=== PATIENT | female | born 1955 | race Caucasian/White ===

== ENCOUNTER → 2016-10-22 | Outpatient (CLI) | payer BC ==
[~2016-10-22] MED LIST: APRESOLINE 25MG25 MG PO; ASPIRIN E.C. 8181 MG PO; ATORVASTATIN; COZAAR 50MG50 MG/TAB PO; IBUPROFEN 200200 MG PO; LIPITOR20 MG PO; LOPRESSOR 550 MG/TAB PO; LOPRESSOR100 MG PO; LORTAB 5/500 501 TAB PO
== END ==
LOC: COL.RAD 14:51
DX: R10.12 Left upper quadrant pain (principal); R10.32 Left lower quadrant pain

== ENCOUNTER → 2016-10-25 | Outpatient (CLI) | payer BC | LOC: COL.RAD 10:30 | DX: K76.89 Other specified diseases of liver (principal); R10.32 Left lower quadrant pain | CPT/HCPCS: Q9967 ==

== ENCOUNTER → 2016-11-20 | Outpatient (CLI) | payer BC | LOC: MC.RAD 16:37 | DX: Z12.31 Encounter for screening mammogram for malignant neoplasm of breast (principal); Z80.3 Family history of malignant neoplasm of breast ==

== ENCOUNTER 2016-11-23 06:56 | Day surgery (SDC) | payer BC ==
[~2016-11-23] VITALS: Ht 172.7 cm; Wt 85.7 kg
[2016-11-23 07:10] VITALS: BP 127/91; PULSE 92; TEMP 97.8
[2016-11-23 08:35] VITALS: BP 104/41; PULSE 71; TEMP 97.8
[2016-11-23 08:50] VITALS: BP 105/59; PULSE 74
[2016-11-23 09:05] VITALS: BP 102/55; PULSE 74
== END 2016-11-23 09:20 | disposition home or self-care (01) ==
LOC: SDCO 06:56
DX: Z12.11 Encounter for screening for malignant neoplasm of colon (principal); K63.5 Polyp of colon; K57.30 Diverticulosis of large intestine without perforation or abscess without bleeding; I10 Essential (primary) hypertension
CPT/HCPCS: J2250; J3010; J7030

== ENCOUNTER → 2017-11-15 | Outpatient (CLI) | payer BC ==
[~2017-11-15] VITALS: Ht 172.8 cm; Wt 89.0 kg
[2017-11-15 06:00] VITALS: BP 138/70; PULSE 88
[2017-11-15 07:10] VITALS: BP 156/75; PULSE 75
[2017-11-15 07:18] VITALS: BP 153/57; PULSE 115
[2017-11-15 07:19] VITALS: BP 134/49; PULSE 107
[2017-11-15 07:20] VITALS: BP 131/54; PULSE 100
[2017-11-15 07:21] VITALS: BP 116/42; PULSE 98
== END ==
LOC: COL.CARD 11-13 05:45
DX: R07.9 Chest pain, unspecified (principal)
CPT/HCPCS: A9502

== ENCOUNTER → 2017-12-20 | Outpatient (CLI) | payer BC | LOC: MC.RAD 09:48 | DX: Z12.31 Encounter for screening mammogram for malignant neoplasm of breast (principal) ==

== ENCOUNTER → 2019-02-09 | Outpatient (CLI) | payer BC | LOC: MC.RAD 14:24 | DX: Z12.31 Encounter for screening mammogram for malignant neoplasm of breast (principal) ==

== ENCOUNTER 2021-05-29 19:26 | Observation (INO) | payer BC ==
[~2021-05-29] VITALS: Ht 172.7 cm; Wt 86.4 kg
[2021-05-29 20:07] LABS: HEMATOCRIT 38.4 % (37.0-47.0); HEMOGLOBIN 12.8 g/dl (12.5-16.0); MEAN CELL VOLUME 91 fl (80.0-100.0); MEAN CORPUSCULAR HEMOGLOBIN 31 pg (27.0-31.0); MEAN CORPUSCULAR HGB CONC 33 g/dl (33.0-37.0); MEAN PLATELET VOLUME 9.7 fl (7.4-10.4); PLATELET COUNT 246 K/mm3 (130-400); REDCELL DISTRIBUTION WIDTH-CV 13.3 % (11.5-14.5)
[2021-05-29 20:16] LABS: PROTHROMBIN TIME 11.6 SECONDS (9.7-12.8)
[2021-05-29 20:21] LABS: ALANINE AMINOTRANSFERASE 32 U/L (4-34); ALBUMIN 4.6 gm/dL (3.5-5.0); ALKALINE PHOSPHATASE 104 U/L (50-136); ANION GAP 10 mmol/L (7-16); AST,SGOT 32 U/L (15-37); BILIRUBIN,TOTAL 0.3 mg/dL (0.0-1.0); BLOOD UREA NITROGEN 14 mg/dL (7-17); CALCIUM 9.1 mg/dL (8.4-10.2); CARBON DIOXIDE 25 mmol/L (22-30); CHLORIDE 105 mmol/L (98-107); CREATININE, serum 1.04 (0.52-1.25); GLUCOSE 120 mg/dL (74-106); LIPASE 208 U/L (23-300); SODIUM 140 mmol/L (137-145); TOTAL PROTEIN 7.5 gm/dL (6.4-8.2)
[2021-05-29 20:23] LABS: C-REACTIVE PROTEIN < 0.5 mg/dL (0.0-0.9)
[2021-05-29 20:37] LABS: LYMPHOCYTE 49 % (20.0-51.0); NEUTROPHILS 43 % (42.0-75.2); PLATELET ESTIMATE NORMAL (NORMAL)
[2021-05-29 20:48] LABS: COLLECTION METHOD CLEAN CATCH
[2021-05-29 20:54] LABS: PH 6 (5-8); SQUAMOUS EPITHELIAL 0-2 /hpf; URINE APPEARANCE Clear; URINE BACTERIA Rare /hpf; URINE BILIRUBIN Negative (NEGATIVE); URINE BLOOD 2+ (NEGATIVE); URINE COLOR Straw; URINE GLUCOSE Negative (NEGATIVE); URINE KETONE Negative (NEGATIVE); URINE LEUKOCYTE ESTERASE Trace (NEGATIVE); URINE NITRATE Negative (NEGATIVE); URINE PROTEIN(semi-quant) Negative (NEGATIVE); URINE UROBILINOGEN Negative (NEGATIVE)
[2021-05-29 23:23] VITALS: BP 142/66; PULSE 79; TEMP 98.2
[2021-05-29] MEDS ORDERED: VITAMIN D31000 I1 PO (23:37)
[2021-05-29] MEDS ORDERED: OSCAL 500 TAB500 MG PO (23:37)
[2021-05-30] VITALS (9 sets, daily range): BP systolic 114–143; BP diastolic 54–71; PULSE 64–78; TEMP 97.9–98.2
--- NOTE | 2021-05-30 00:02 | NUR ---
PT ADMITTED TO THE UNIT, INTAKE AND ASSESSMENT COMPLETED. PT ORIENTED TO ROOM. DENIES ANY SOB OR PAIN WHILE RESTING. REPORTS CHEST PAIN UPON EXERTION. REQUESTING MEDICATION TO HELP HER SLEEP, STATES SHE HAS ANXIETY ABOUT HOSPITAL STAYS. PT ALSO REPORTS SEEING A DR. MARTINEZ IN [place] FOR THE PAST SEVERAL YEARS FOR HER ELEVATED HEART RATE. DENIES ANY NEEDS AT THIS TIME. WILL CONTINUE TO MONITOR.
[2021-05-30 03:57] LABS: HEMOGLOBIN 11.5 g/dl (12.5-16.0); MEAN CELL VOLUME 94 fl (80.0-100.0); MEAN CORPUSCULAR HEMOGLOBIN 31 pg (27.0-31.0); MEAN CORPUSCULAR HGB CONC 33 g/dl (33.0-37.0); MEAN PLATELET VOLUME 9.7 fl (7.4-10.4); PLATELET COUNT 233 K/mm3 (130-400); RED BLOOD COUNT 3.76 M/mm3 (4.10-5.30); REDCELL DISTRIBUTION WIDTH-CV 13.4 % (11.5-14.5)
[2021-05-30 04:04] LABS: HEMATOCRIT 35.4 % (37.0-47.0)
[2021-05-30 04:08] LABS: CALCIUM 8.9 mg/dL (8.4-10.2); CHOLESTEROL RISK RATIO 2.7; CREATININE, serum 0.71 (0.52-1.25); POTASSIUM 3.9 mmol/L (3.4-5.0)
[2021-05-30 04:29] LABS: LYMPHOCYTE 36 % (20.0-51.0); METAMYELOCYTE 2 % (0-0); NEUTROPHILS 55 % (42.0-75.2); PLATELET ESTIMATE NORMAL (NORMAL)
--- NOTE | 2021-05-30 09:20 | NUR ---
Patient awake lying in bed at this time. Scheduled medications given. Shift assessment preformed. Patient C/O sharp substernal chest pain rated a 1/10. States that it is aggravated by movement. PRN tylenol given. Heparin gtt adjusted per protocol, ALKESANDR Marshall cosigned. Patient denies any further pain, discomfort, SOA, or further needs at this time. Call light in reach.
--- NOTE | 2021-05-30 10:09 | NUR ---
SW met with patient to discuss discharge plan. 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 Patient reports to being fully independent with her activities of daily living and does not use any medical equipment within the home. PCP is Dr. Bravo and uses [facility] for medications. Reports no difficulty affording medications. Reports she does have a [facility] established and reports her agent is her friend Anjelica ([phone]). Patient plans to return home with no concerns. *Discharge plan: Home*
--- NOTE | 2021-05-30 12:30 | NUR ---
First visit from the liquor runner. No needs right now.
--- NOTE | 2021-05-30 18:14 | NUR ---
Patient has had a rough day. EKG and Echo preformed. NPO after midnight last night for possible stress test today. Stress test not preformed. Cardiology cleared for outpatient stress test. Heparin gtt running as orderd. Patient states that pain is 1/10 sharp pain while resting, pain intensifies upon exertion. Lidocaine patch placed on sternum. Patient denies any further needs at this time. Call light in reach.
--- NOTE | 2021-05-30 19:24 | NUR ---
PT SITTING ON EDGE OF BED. REFUSES EVENING MEDICATIONS. HEPARIN GTT D/C PER ORDERS. PT NOT UNDERSTANDING WHY SHE HAS NOT BEEN D/C YET AND WANTS TO LEAVE BEFORE IT GETS TOO LATE. ASKED SANDRA TO COME UP AND SPEAK WITH PT TO GIVE HER SOME CLARITY ON SITUATION. SANDRA IN PT ROOM SPEAKING WITH HER NOW. WILL CONTINUE TO MONITOR.
== END 2021-05-30 20:18 | disposition home or self-care (01) ==
LOC: COL.ER 19:26 → MEDICAL 20:54
PROVIDERS: Nurse Practitioner Primary Care; Student in an Organized Health Care Education/Training Program; ADMIT Student in an Organized Health Care Education/Training Program
DX: R07.89 Other chest pain (principal); I16.0 Hypertensive urgency; I10 Essential (primary) hypertension; E78.5 Hyperlipidemia, unspecified; Z79.899 Other long term (current) drug therapy; Z79.82 Long term (current) use of aspirin; Z85.820 Personal history of malignant melanoma of skin
CPT/HCPCS: 99233-AI; G0378; J1644

== ENCOUNTER 2022-02-15 10:28 | Outpatient (CLI) | payer BC ==
[~2022-02-15] VITALS: Ht 172.7 cm; Wt 86.3 kg
[~2022-02-15 10:28] MED LIST changes: +OSCAL 500 TAB500 MG PO; +VITAMIN D31000 I1 PO
[2022-02-15 11:17] VITALS: BP 113/69; PULSE 80; TEMP 99
[2022-02-15 11:30] VITALS: PULSE 75
[2022-02-15 11:45] VITALS: PULSE 79
[2022-02-15 12:00] VITALS: BP 168/96; PULSE 77
[2022-02-15 12:22] VITALS: BP 168/98; PULSE 73; TEMP 98.8
[2022-02-15] MEDS ORDERED: DIAMOX 250MG250 MG PO (15:56)
[2022-02-15] MEDS ORDERED: NITROSTAT0.4 MG/TAB SL (15:57)
[2022-02-15] MEDS ORDERED: APRESOLINE 10MG10 MG PO (15:57)
== END 2022-02-15 12:40 | disposition home or self-care (01) ==
LOC: EUO 10:28 → EDSTATUS 10:30 → EUO 10:30
DX: U07.1 COVID-19 (principal); E66.9 Obesity, unspecified; I25.10 Atherosclerotic heart disease of native coronary artery without angina pectoris
CPT/HCPCS: M0222; Q0222